=== PATIENT | female | born 1945 | race Caucasian/White ===

== ENCOUNTER 2024-09-10 16:02 | Inpatient (IN) | payer MEDICARE, OTHER ==
[~2024-09-10] VITALS: Ht 162.6 cm; Wt 56.7 kg
[~2024-09-10 16:02] MED LIST: NITR100C PO
[2024-09-10] MEDS ORDERED: TRAZ-182 PO (16:50)
[2024-09-10] MEDS ORDERED: BUPR-319 PO (16:50)
[2024-09-10] MEDS ORDERED: DONE10TA44 PO (16:50)
[2024-09-10] MEDS ORDERED: MULT-594 PO (16:50)
[2024-09-10] MEDS ORDERED: CHOL200010 PO (16:50)
[2024-09-10] MEDS ORDERED: ROSU10TA29 PO (16:50)
[2024-09-10] MEDS ORDERED: FLUT16SP NS (16:50)
[2024-09-10 16:51] LABS: PLATELET COUNT (AUTO) 274 K/uL (150-450); RED BLOOD CELL COUNT(AUTO) 4.33 MIL/uL (4.0-5.2); RED CELL DISTRIBUTION WIDTH 14.2 % (11.5-15.0); WHITE BLOOD COUNT (AUTO) 10.4 K/uL (4.3-11.0)
[2024-09-10 16:57] LABS: APPEARANCE,URINE SLIGHTLY CLOUDY (CLEAR); BLOOD, URINE NEGATIVE Ery/uL (NEGATIVE); LEUKOCYTE ESTERASE ,URINE 1+ (NEGATIVE); NITRITE, URINE NEGATIVE (NEGATIVE); UGLUCOSE NEGATIVE (NEGATIVE)
[2024-09-10 17:05] LABS: ADD URINE CULTURE YES; SQUAMOUS EPITHELIAL CELL,UR Moderate /HPF (None Seen)
[2024-09-10 17:06] LABS: CALCIUM, SERUM 8.9 mg/dL (8.5-10.1); CREATININE 0.5 mg/dL (0.6-1.3); SODIUM SERUM 137 mmol/L (136-145); UREA NITROGEN, BLOOD 19 mg/dL (7-18)
[2024-09-10 17:11] LABS: ALCOHOL, BLOOD < 3 mg/dL (0-10); ASPARTATE AMINOTRANSFERASE 22 U/L (15-37); TOTAL PROTEIN, SERUM 5.7 g/dL (6.4-8.2)
[2024-09-10 17:22] LABS: AMPHETAMINE, URINE NEGATIVE (NEGATIVE); BARBITURATE, URINE NEGATIVE (NEGATIVE); CANNABINOID, URINE NEGATIVE (NEGATIVE); COCCAINE, URINE NEGATIVE (NEGATIVE); OPIATE, URINE NEGATIVE (NEGATIVE)
[2024-09-10] MEDS: CEFTRIAXONE 1GM BAG (ER ONLY) 1 GM/50 ML PIGGYBACK IV ONE (17:30)
[2024-09-10 17:59] LABS: BENZODIAZEPINE, URINE NEGATIVE (NEGATIVE)
[2024-09-10] MEDS ORDERED: CEPHALEXIN MONOHYDRATE 500 MG CAPSULE PO ONE (19:00)
[2024-09-10] MEDS: CEPHALEXIN MONOHYDRATE 500 MG CAPSULE PO ONE (19:02)
[2024-09-10 20:30] VITALS: BP 105/66; TEMP 98.8; O2SAT 98
[2024-09-10] MEDS ORDERED: MAG HYDROX/AL HYDROX/SIMETH 30 ML UDC PO PRN (21:00)
[2024-09-10] MEDS ORDERED: LORAZEPAM 1 MG TABLET PO PRN (21:00)
[2024-09-10] MEDS ORDERED: LORAZEPAM 0.5 MG TABLET PO PRN (21:00)
[2024-09-10] MEDS ORDERED: MAGNESIUM HYDROXIDE 30 ML UDC PO PRN (21:00)
[2024-09-10] MEDS ORDERED: ACETAMINOPHEN 325 MG TABLET PO PRN (21:00)
[2024-09-10] MEDS: CEPHALEXIN MONOHYDRATE 500 MG CAPSULE PO SCH (21:35)
[2024-09-10] MEDS: ATORVASTATIN 10 MG TABLET PO SCH (21:35)
[2024-09-10] MEDS: DONEPEZIL 5 MG TABLET PO SCH (21:35)
[2024-09-10] MEDS: BLOOD SUGAR DIAGNOSTIC 1 EACH STRIP IN ONE (21:35)
[2024-09-10] MEDS: FLUTICASONE PROPIONATE 16 GM BOTTLE NS SCH (21:36)
[2024-09-10] MEDS: TEMAZEPAM 7.5 MG CAPSULE PO PRN (21:41)
[2024-09-11 07:50] LABS: CREATININE 0.4 mg/dL (0.6-1.3)
[2024-09-11 07:57] LABS: ASPARTATE AMINOTRANSFERASE 22.0 U/L (15-37); CALCIUM, SERUM 8.5 mg/dL (8.5-10.1); CREATININE 0.4 mg/dL (0.6-1.3); SODIUM SERUM 137.0 mmol/L (136-145); TOTAL PROTEIN, SERUM 5.8 g/dL (6.4-8.2); UREA NITROGEN, BLOOD 16.0 mg/dL (7-18)
[2024-09-11 08:07] LABS: LDL 60.0 mg/dL (0-99)
[2024-09-11 08:32] VITALS: BP 120/62; TEMP 97.7; O2SAT 96
[2024-09-11] MEDS: MULTIVITAMINS,THERAGRAN 1 UDTAB TABLET PO SCH (09:11)
[2024-09-11] MEDS: CHOLECALCIFEROL 1,000 UNIT TABLET (VIT D3) PO SCH (09:12)
[2024-09-11] MEDS: NICOTINE PATCH (21MG) 21 MG PATCH.TD24 TD SCH (12:01)
[2024-09-11] MEDS ORDERED: LORAZEPAM 1 MG TABLET PO PRN (14:00)
[2024-09-11 16:12] VITALS: BP 116/50; TEMP 97.9; O2SAT 96
[2024-09-11 19:48] VITALS: BP 107/56; TEMP 97.9; O2SAT 96
[2024-09-11] MEDS: TRAZODONE 50 MG TABLET PO SCH (21:56)
[2024-09-11] MEDS: TEMAZEPAM 7.5 MG CAPSULE PO PRN (23:51)
[2024-09-12 08:00] VITALS: BP 109/58; TEMP 97.7; O2SAT 95
[2024-09-12] MEDS: BUPROPION XL 150 MG TAB.ER.24 PO SCH (08:12)
[2024-09-12 15:53] VITALS: BP 100/65; TEMP 97.8; O2SAT 98
[2024-09-12 19:45] VITALS: BP 104/62; TEMP 97.8; O2SAT 97
[2024-09-13 08:00] VITALS: BP 111/60; TEMP 97.7; O2SAT 95
[2024-09-13] MEDS: IBUPROFEN 400 MG TABLET PO PRN (14:49)
[2024-09-13 16:00] VITALS: BP 104/53; TEMP 98.6; O2SAT 96
[2024-09-13 19:56] VITALS: BP 102/54; TEMP 98.1; O2SAT 97
[2024-09-14 08:00] VITALS: BP 109/56; TEMP 98.7; O2SAT 97
[2024-09-14 16:00] VITALS: BP 98/46; TEMP 98; O2SAT 95
[2024-09-14 21:17] VITALS: BP 102/54; TEMP 98.2; O2SAT 97
[2024-09-15 08:00] VITALS: BP 101/52; TEMP 97.8; O2SAT 100
[2024-09-15 16:00] VITALS: BP 100/51; TEMP 98.1; O2SAT 96
[2024-09-15 21:09] VITALS: BP 93/52; TEMP 97.7; O2SAT 95
[2024-09-16 08:00] VITALS: BP 111/59; TEMP 98.6; O2SAT 93
[2024-09-16 16:00] VITALS: BP 115/58; TEMP 98; O2SAT 94
[2024-09-16 20:50] VITALS: BP 108/52; TEMP 98.2; O2SAT 96
[2024-09-17 08:00] VITALS: BP 121/53; TEMP 97.9; O2SAT 96
[2024-09-17 16:00] VITALS: BP 119/56; TEMP 97.7; O2SAT 95
[2024-09-17 20:07] VITALS: BP_SYST 125; BP_SYST 92; BP_DIAS 52; BP_DIAS 53; TEMP 97.9; O2SAT 95
[2024-09-18 08:00] VITALS: BP 118/55; TEMP 97.7; O2SAT 95
[2024-09-18 16:13] VITALS: BP 97/45; TEMP 97.7; O2SAT 97
[2024-09-18 20:02] VITALS: BP 113/54; TEMP 97.9; O2SAT 96
[2024-09-19 08:00] VITALS: BP 133/70; TEMP 98.6; O2SAT 96
[2024-09-19 16:00] VITALS: BP 122/61; TEMP 98.1; O2SAT 97
[2024-09-19 20:05] VITALS: BP 125/70; TEMP 98; O2SAT 97
[2024-09-20 08:00] VITALS: BP 126/59; TEMP 97.9; O2SAT 94
== END 2024-09-20 13:09 | DRG 885 ==
LOC: ER 16:22 → GPS 19:15
PROVIDERS: ADMIT Nurse Practitioner Psychiatric/Mental Health; ATTEND Nurse Practitioner Acute Care
DX: F33.9 Major depressive disorder, recurrent, unspecified (principal); F01.52 Vascular dementia, unspecified severity, with psychotic disturbance; N39.0 Urinary tract infection, site not specified; F01.53 Vascular dementia, unspecified severity, with mood disturbance; R45.851 Suicidal ideations; F29 Unspecified psychosis not due to a substance or known physiological condition; E03.9 Hypothyroidism, unspecified; E78.5 Hyperlipidemia, unspecified; M81.0 Age-related osteoporosis without current pathological fracture; Z79.51 Long term (current) use of inhaled steroids; Z79.899 Other long term (current) drug therapy; Z59.86 Financial insecurity; Z91.148 Patient's other noncompliance with medication regimen for other reason; Z91.51 Personal history of suicidal behavior; B96.89 Other specified bacterial agents as the cause of diseases classified elsewhere
CPT/HCPCS: 36415; 80048-TC; 80053-TC; 80061-TC; 80076-TC; 81001; 82565-TC; 82962-TC; 84443-TC; 85025-TC; 87081-TC; 87086-TC; 97116-TC; 97530-TC; G0480